=== PATIENT | female | born 1995 | race Caucasian/White ===

== ENCOUNTER 2024-03-20 20:49 | Observation (INO) ==
[2024-03-20 22:39] LABS: ABS Basophils 0.1 10^3/uL (0.0-0.1); ABS Eosinophils 0.1 10^3/uL (0.0-0.5); ABS Neutrophils 10.4 10^3/uL (1.5-7.6); Eosinophil % 0.7 %; Hematocrit 35.8 % (35-45); Hemoglobin 11.6 g/dL (11.5-14.3); Lymphocyte % 14.8 %; Mean Corpuscular Hgb Conc 32.6 g/dL (31-36); Mean Corpuscular Volume 92.1 fL (80-97); Mean Platelet Volume 6.6 fL (7.5-11.2); Platelet Count 491 10^3/uL (150-450); Red Blood Count 3.88 10^6/uL (3.63-4.92); Red Cell Distribution Width 14.4 % (12-17); White Blood Count 13.6 10^3/uL (3.8-11.8)
[2024-03-20 22:41] LABS: Urine Appearance Turbid; Urine Bilirubin Negative (Negative); Urine Blood 3+ (Negative); Urine Color Dark-Yellow; Urine Glucose Negative (Negative); Urine Ketones Negative (Negative); Urine Nitrite 2+ (Negative); Urine Protein 1+ (>=30 mg/dL) (Negative); Urine Specific Gravity 1.014 (1.002-1.030); Urine Urobilinogen 1+ (Negative); Urine pH 5.5 (5.0-8.0)
[2024-03-20 23:08] LABS: Urine Bacteria 1+ /HPF (Absent); Urine Red Blood Cell 2+(6-10/hpf) /HPF (0-Trace); Urine Squamous Epithelial Cell Present /HPF (Absent); Urine White Blood Cell 3+(>20/hpf) /HPF (0-Trace)
[2024-03-20 23:09] LABS: ALT 7 U/L (7-52); AST 11 U/L (13-39); Albumin 4.2 g/dL (3.2-5.2); Albumin/Globulin Ratio 1.4 (1-3); Alkaline Phosphatase 56 U/L (35-149); Anion Gap 8 mmol/L (2-16); Blood Urea Nitrogen 11 mg/dL (6-24); CO2 Carbon Dioxide 25 mmol/L (22-32); Chloride 105 mmol/L (101-111); Creatinine, Serum 0.55 mg/dL (0.51-0.95); Globulin 3.1 g/dL (2-4); Glucose 75 mg/dL (70-100); Lipase 12 U/L (11.0-82.0); Potassium 3.9 mmol/L (3.5-5.0); Sodium 138 mmol/L (135-145); Total Bilirubin 0.7 mg/dL (0.2-1.0); Total Protein 7.3 g/dL (6.4-8.9)
[2024-03-20 23:15] LABS: HCG Pregnancy < 0.60 mIU/mL
[2024-03-20] MEDS: Lactated Ringers 1000 ml BAG 1,000 ML IV ONE (23:45)
[2024-03-21] MEDS: cefTRIAXone 1 gm/50 mL D5W 1 GM/50 ML BAG IV ONE ×2 (01:39→02:04)
[2024-03-21] MEDS ORDERED: Ondansetron 4 mg VIAL 2 MG/ML 2 ml VIAL IV PRN (03:13)
[2024-03-21] MEDS: Lactated Ringers 1000 ml BAG 1,000 ML IV ONE ×2 (03:42)
[2024-03-21 04:44] LABS: ABS Basophils 0.1 10^3/uL (0.0-0.1); ABS Eosinophils 0.1 10^3/uL (0.0-0.5); ABS Neutrophils 8.4 10^3/uL (1.5-7.6); Eosinophil % 0.8 %; Hematocrit 29.8 % (35-45); Lymphocyte % 17.1 %; Mean Corpuscular Hemoglobin 30.8 pg (27-33); Mean Corpuscular Hgb Conc 33.5 g/dL (31-36); Mean Corpuscular Volume 91.8 fL (80-97); Mean Platelet Volume 6.5 fL (7.5-11.2); Platelet Count 382 10^3/uL (150-450); Red Blood Count 3.25 10^6/uL (3.63-4.92); Red Cell Distribution Width 14.3 % (12-17); White Blood Count 11.5 10^3/uL (3.8-11.8)
[2024-03-21 05:19] LABS: Calcium 8.9 mg/dL (8.6-10.3); Creatinine, Serum 0.53 mg/dL (0.51-0.95); Potassium 3.6 mmol/L (3.5-5.0); eGFR CKD-EPI 129.1 (>60)
[2024-03-21] MEDS: Acetaminophen IV 1 GM/100ML 1,000 MG/100 ML BAG IV PRN (07:20)
[2024-03-21 09:54] VITALS: BP 108/61
[2024-03-22] MEDS ORDERED: cefTRIAXone 1 gm/50 mL D5W 1 GM/50 ML BAG IV SCH ×2 (00:30)
== END 2024-03-21 09:53 | disposition home or self-care (01) ==
LOC: EDHOLD 20:49 → ED 20:49 → SUATTDRO 03-21 03:13 → SSU 03-21 07:48 → EDHOLD 03-21 08:59
PROVIDERS: ADMIT Internal Medicine; ATTEND Internal Medicine